=== PATIENT | female | born 2000 | race Native Hawaiian/Other Pacific Islander ===

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

== ENCOUNTER 2019-01-04 18:03 | Emergency (ER) | payer OTHER ==
[~2019-01-04] VITALS: Ht 162.6 cm; Wt 118.8 kg
[2019-01-04 19:32] LABS: PLATELET COUNT 598 K/uL (152-353)
[2019-01-04 20:32] LABS: POTASSIUM 3.7 mmol/L (3.6-5.2)
[2019-01-04 21:29] VITALS: BP 145/90; TEMP 99.1
== END 2019-01-04 21:43 | disposition short-term general hospital (02) ==
LOC: ED 18:03
PROVIDERS: Family Medicine
DX: Z33.1 Pregnant state, incidental (principal); Z3A.36 36 weeks gestation of pregnancy; D72.828 Other elevated white blood cell count
CPT/HCPCS: 36415; 80053; 81000; 85027; 96360; 99284

== ENCOUNTER 2020-11-10 22:47 | Emergency (ER) | payer OTHER ==
[~2020-11-10] VITALS: Ht 162.6 cm; Wt 118.8 kg
[2020-11-10 22:55] VITALS: TEMP 96.9
[2020-11-11 00:23] VITALS: BP 132/84
== END 2020-11-11 00:25 | disposition home or self-care (01) ==
LOC: ED 22:47
DX: N39.0 Urinary tract infection, site not specified (principal)
CPT/HCPCS: 81000; 81025; 87077; 87086; 87088; 87186; 99283

== ENCOUNTER 2021-06-05 17:19 | Emergency (ER) | payer OTHER ==
[~2021-06-05] VITALS: Ht 162.6 cm; Wt 93.0 kg
[2021-06-05 17:19] VITALS: TEMP 97
[2021-06-05 18:00] VITALS: BP 138/76
== END 2021-06-05 18:06 | disposition home or self-care (01) ==
LOC: ED 17:19
DX: U07.1 COVID-19 (principal); F41.8 Other specified anxiety disorders
CPT/HCPCS: 99281

== ENCOUNTER 2022-05-08 13:58 | Outpatient (CLI) | payer OTHER | END 2022-05-08 20:57 | disposition home or self-care (01) | LOC: RAD 13:58 | PROVIDERS: ATTEND Nurse Practitioner Family | DX: M79.674 Pain in right toe(s) (principal) ==